=== PATIENT | female | born 1950 | race Caucasian/White ===

== ENCOUNTER → 2016-05-08 | Outpatient (CLI) | payer OTHER ==
[~2016-05-08] MED LIST: ALAVERT10 MG PO; BREO ELLIPTA 11 EACH INH; DICYCLOMINE HCL20 MG PO; ELIMITE60 GM TOP; FLUTICASONE PRO15 G1 TOP; FML10 ML OD; NEURONTIN PO; NEXIUM PO; PHENERGAN DM1 ML DOB; PRAVACHOL20 MG PO; PRILOSEC PO; PROMETH-CODEIN 65 ML; RESTASIS32 EA OD; RETIN-A45 GM TOP; ULTRAM PO; ZITHROMAX1 G/PKT PO
--- NOTE | ~2016-05-08 | CR63 ---
[facility]. [facility] A Service of [facility] & [facility] / [facility] RADIOLOGY TEXT RESULTS PATIENT: PAT QUEEN LOCATION: [facility] : 52 UNIT #: [id number] AGE: [address]: Estefania Fair MANAGER INFUSION SEX: F ORDER DR: [id number] [address] [address] [id number] O MR#: [id number] Acc #: [id number] NAME: PAT QUEEN : 1950 SEX: F STUDY DATE/TIME: 05/08/2016 17:58 UNIT: [facility] ROOM: STUDY DESCRIPTION: CR Chest 2 View Attending Physician: Estefania Fair A.P.R.N. Ordering Physician: Estefania Fair A.P.R.N. Primary Care Physician: Iwona Leal M.D. MEDICAL IMAGING REPORT This report is preliminary unless electronic signature is present. EXAM PA and lateral chest HISTORY Cough and congestion for 4 weeks. FINDINGS 2 views of the chest demonstrate hyperinflation of both lungs. Cardiac size and pulmonary vascularity are within normal limits. No focal infiltrates or effusions. Mild left mid thoracic curve. IMPRESSION No acute findings and no active disease. Dictated by... Dao Deleon M.D. THIS IS AN ELECTRONICALLY VERIFIED REPORT Dao Deleon M.D. at 05/09/2016 11:35 PM DFNile/bill TD: 05/09/2016 11:37 JOB #: [id number] MEDICAL IMAGING REPORT
== END | disposition home or self-care (01) ==
LOC: SRAD 17:52
DX: R05 Cough (principal)
CPT/HCPCS: 71020

== ENCOUNTER → 2016-05-20 | Outpatient (CLI) | payer OTHER | END | disposition home or self-care (01) | LOC: CSSDAY 13:23 | DX: M81.0 Age-related osteoporosis without current pathological fracture (principal) | CPT/HCPCS: 96374; J3489 ==